=== PATIENT | female | born 1980 | race Caucasian/White ===

== ENCOUNTER → 2018-10-29 12:50 | Outpatient (CLI) | payer OTHER, SELFPAY | PROVIDERS: PCP Family Medicine; Visit Provider Family Medicine | DX: R20.2 Paresthesia of skin (principal) | CPT/HCPCS: 95911 ==

== ENCOUNTER → 2019-05-24 12:04 | Outpatient (CLI) | payer OTHER, SELFPAY ==
--- NOTE | 2019-05-24 | DI.MG.S_ITS ---
BILATERAL DIGITAL SCREENING MAMMOGRAM 3D/2D WITH CAD: 05/24/2019 CLINICAL: Baseline exam. Routine screening. No prior exams were available for comparison. There are scattered fibroglandular elements in both breasts. Current study was also evaluated with a Computer Aided Detection (CAD) system. No significant masses, calcifications, or other findings are seen in either breast. IMPRESSION: NEGATIVE There is no mammographic evidence of malignancy. A 1 year screening mammogram is recommended. This exam was interpreted at Station ID: [id number]. NOTE: For mammograms, a report in lay terms will be sent to the patient. Approximately 15% of breast malignancies will not be visualized mammographically. In the management of a palpable breast mass, a negative mammogram must not discourage biopsy of a clinically suspicious lesion. Electronically Signed By: Renata ortiz/[email or web address]:05/24/2019 17:17:04 letter sent: Normal Exam ACR BI-RADS Category 1: Negative [id number]
== END ==
PROVIDERS: PCP Family Medicine; Visit Provider Family Medicine
DX: Z12.31 Encounter for screening mammogram for malignant neoplasm of breast (principal)
CPT/HCPCS: 77063; 77067

== ENCOUNTER 2021-02-13 15:52 | Observation (INO) | payer OTHER, SELFPAY ==
[2021-02-13 15:56] VITALS: BP 158/90; PULSE 119; RESP 18; TEMP 37.4; O2SAT 98; BMI 43.9
[2021-02-13 17:16] LABS: Add Manual Diff / Slide Review NO; Basophils Absolute Auto 0 /uL (0-100); Basophils Percent Auto 0.3 % (0-2); Eosinophils Absolute Auto 0 /uL (0-450); Eosinophils Percent Auto 0.1 % (2-4); Hematocrit 42.7 % (36-46); Hemoglobin 14.6 g/dL (12.0-16.0); Lymphocytes Absolute Auto 800 /uL (1100-4500); Lymphocytes Percent Auto 4.1 % (25-40); Mean Corpuscular HGB Conc 34.3 % (30-36); Mean Corpuscular Hemoglobin 30.1 PG (26-34); Mean Corpuscular Volume 87.9 fL (80-100); Monocytes Absolute Auto 600 /uL (0-900); Monocytes Percent Auto 3.2 % (3-14); Neutrophils Absolute Auto 17800 /uL (1500-7000); Neutrophils Percent Auto 92.3 % (50-75); Platelet Count 256 X10^3/uL (150-400); Red Blood Cell Count 4.85 X10^6/uL (4.0-5.2); Red Cell Distribution Width 12.3 % (11.6-14.8); White Blood Cell Count 19.2 X10^3/uL (4.5-11.0)
[2021-02-13 17:27] LABS: Alanine Aminotransferase 25 IU/L (<35); Albumin 4.2 g/dL (3.5-5.0); Albumin Globulin Ratio 1.3 (1.0-2.8); Alkaline Phosphatase 74 U/L (38-126); Aspartate Aminotransferase 28 IU/L (14-36); BUN Creatinine Ratio 16.4 (6-22); Bilirubin Total 1.2 mg/dL (0.2-1.3); Blood Urea Nitrogen 12 mg/dL (7-17); Calcium 9.6 mg/dL (8.4-10.2); Carbon Dioxide 23 mmol/L (22-32); Chloride 103 mmol/L (98-107); Estimated Glomerular Filt Rate > 60.0 mL/min (>60); Globulin 3.3 g/dL (1.7-4.1); Glucose 111 mg/dL (70-100); HEMOLYSIS < 15 (0-50); Lipase 76 U/L (23-300); Potassium 3.9 mmol/L (3.4-5.1); Sodium 135 mmol/L (137-145); Total Protein 7.5 g/dL (6.3-8.2)
--- NOTE | 2021-02-13 18:16 | ED_ITS ---
HPI - Abdominal Pain General Chief Complaint: Abdominal Pain Stated Complaint: abd pain Time Seen by Provider: 02/13/21 18:09 Source: patient and family Mode of arrival: Wheelchair Limitations: no limitations History of Present Illness HPI narrative: 40-year-old female nonsmoker with history of hypothyroidism presents with her significant other from her primary care provider's office for evaluation of gradually worsening right lower quadrant pain over the course of the day. She states she went to bed last night in her normal state of health and woke up this morning with rather sudden onset right lower quadrant pain that is done nothing but worsened over the course of the day. She admits to worsening pain with movement and ambulation and improvement with rest. She has had no fever but admits to some chills as well as nausea but no vomiting. She has a poor appetite and last ate at about 2:30 p.m.. She denies any change in bowel habits such as constipation or diarrhea. She denies dysuria, frequency or urgency. She has had 2 prior C-sections but otherwise no abdominal surgeries. She states that her pain is intensifying, solidly in her right lower quadrant and crampy in nature Related Data Home Medications Medication Instructions Recorded Confirmed cholecalciferol (vitamin D3) 50 50 mcg PO DAILY 02/13/21 02/13/21 mcg (2,000 unit) capsule levothyroxine 125 mcg tablet 125 mcg PO DAILY 02/13/21 02/13/21 multivitamin 1 tab PO DAILY 02/13/21 02/13/21 Allergies Allergy/AdvReac Type Severity Reaction Status Date / Time bee venom protein (honey bee) Allergy Severe Blister Verified 02/13/21 15:56 clindamycin Allergy Intermediate ITCHING Verified 02/13/21 15:56 Review of Systems Review of Systems Narrative: GENERAL: See HPI HEENT: Denies sinus pain, ear pain, sore throat, difficulty swallowing, dizziness. RESPIRATORY: Denies dyspnea, cough, wheezing, hemoptysis, sputum. CARDIOVASCULAR: Denies chest pain, palpitations, orthopnea, edema, GASTROINTESTINAL: See HPI a. : Denies dysuria, frequency, incontinence, hematuria, urinary retention. MUSCULOSKELETAL: denies weakness, joint pain, or bony pain SKIN: Denies rash, skin lesions, or other NEUROLOGIC: Denies weakness, headache, numbness, change in speech, confusion, seizures, incoordination. PSYCHIATRIC: No concerning psychosocial issues. 12 point review of systems is negative except for those stated above Patient History Social History household members: spouse and children Smoking Status: Never smoker Smoking Status: Never smoker alcohol intake frequency: a few times a week Substance Use Type: does not use Exam Narrative Exam Narrative: GENERAL: [40] year old patient appears stated age. Well- developed patient, in mild distress. Obviously uncomfortable, rubbing her lower abdomen HEAD: Atraumatic. Normocephalic. EYES: Pupils equal round and reactive. Extraocular motions intact. No scleral icterus. No injection or drainage. ENT: Nose without bleeding, purulent drainage. Throat without erythema, tonsillar hypertrophy or exudate. Airway patent. NECK: Trachea midline. Non tender CARDIOVASCULAR: Regular rate and rhythm without murmurs, gallops, or rubs. RESPIRATORY: Clear to auscultation. Breath sounds equal bilaterally. No wheezes, rales, or rhonchi. GASTROINTESTINAL: Abdomen soft, tender in the right lower quadrant with localized peritonitis, bowel sounds are present in all 4 quadrants, negative heel tap, obturator and psoas, nondistended. EXTREMITIES: No edema or joint tenderness. BACK: Nontender without deformity or crepitance. No flank tenderness. NEURO: AOx3. SKIN: No rash or erythema of visible areas Initial Vital Signs Initial Vital Signs: Vital Signs Temperature 99.4 F 02/13/21 15:56 Pulse Rate 119 H 02/13/21 15:56 Respiratory Rate 18 02/13/21 15:56 Blood Pressure 158/90 H 02/13/21 15:56 Pulse Oximetry 98 02/13/21 15:56 Course Orders Ordered: ED Orders 02/13/21 18:07 Blood Culture Stat 02/13/21 18:17 CT chest abd pel w con Stat 02/13/21 18:45 COVID19 - ADMIT (RADIOLOGY PRACTITIONER ASSISTANT swab/PCR) Stat Acetaminophen (Acetaminophen 325 Mg Tablet) 650 mg PO Q6HR PRN PRN Reason: Fever/Mild Pain (1-3) Hydrocodone Bitart/Acetaminophen (Hydrocodone/Acet 5/325 Tablet) 2 tab PO Q4HR PRN PRN Reason: Pain, Severe (7-10) Heparin Sodium (Porcine) (Heparin 5,000 Unit/Ml Vial) 5,000 unit SUBCUT BID [facility] Last Admin: 02/13/21 22:29 Dose: 5,000 unit Documented by: KARO Dextrose/Sodium Chloride (Dextrose 5%-0.9% Ns) 1,000 mls @ 100 mls/hr IV CONT [facility] Last Admin: 02/13/21 22:29 Dose: 100 mls/hr Documented by: KARO Piperacillin Sod/Tazobactam (Sod 4.5 gm/ Sodium Chloride) 100 mls @ 25 mls/hr IV Q8H [facility] Last Admin: 02/13/21 22:29 Dose: 25 mls/hr Documented by: KARO Sodium Chloride (Normal Saline 0.9%) 250 mls @ 21 mls/hr IV Q24H PRN PRN Reason: Flush Ibuprofen (Ibuprofen 600 Mg Tablet) 600 mg PO Q6HR [facility] Last Admin: 02/13/21 23:41 Dose: 600 mg Documented by: ARNULFO Naloxone HCl (Naloxone 0.4 Mg/Ml Vial) 0.2 mg IV Q2MIN PRN PRN Reason: Opiate Reversal Ondansetron HCl (Ondansetron 4 Mg/2 Ml Inj) 4 mg IV Q8HR PRN PRN Reason: Nausea And Vomiting Sodium Chloride (Sodium Chloride 0.9% Flush) 10 ml IV PRN PRN PRN Reason: Flush Sodium Chloride (Sodium Chloride 0.9% Flush) 10 ml IV BID [facility] Discontinued Medications Piperacillin Sod/Tazobactam (Sod 4.5 gm/ Sodium Chloride) 100 mls @ 200 mls/hr IV NOW ONE Stop: 02/13/21 19:52 Last Infusion: 02/13/21 21:02 Dose: 0 mls/hr Documented by: Admin: 02/13/21 20:13 Dose: 200 mls/hr Documented by: JESUS Sodium Chloride (Normal Saline 0.9%) 1,000 mls @ 1,000 mls/hr IV BOLUS ONE Stop: 02/13/21 22:42 Last Infusion: 02/13/21 21:45 Dose: 0 mls/hr Documented by: Admin: 02/13/21 19:45 Dose: 1,000 mls/hr Documented by: JESUS Ketorolac Tromethamine (Ketorolac 30 Mg/Ml Vial) 15 mg IV NOW ONE Stop: 02/13/21 19:37 Last Admin: 02/13/21 19:45 Dose: 15 mg Documented by: JESUS Morphine Sulfate (Morphine 4 Mg/Ml Inj) 4 mg IV NOW ONE Stop: 02/13/21 19:37 Last Admin: 02/13/21 19:45 Dose: 4 mg Documented by: JESUS Reevaluation(s) Reevaluation #1: Significant improvement after above-stated therapies Consultations Consultation #1: Call to Dr. Garcia (on-call general surgery) who will admit, write the orders and take to the OR tomorrow Vital Signs Vital signs: Vital Signs - 8 hr 02/13/21 20:00 Pulse Rate 101 H Respiratory Rate 18 Blood Pressure 125/64 Pulse Oximetry 96 MDM - Abdominal Pain Lab Data Result diagrams: 02/13/21 17:05 02/13/21 17:05 Labs: Lab Results 02/13/21 02/13/21 02/13/21 Range/Units 17:05 17:05 17:05 WBC 19.2 H (4.5-11.0) X10^3/uL RBC 4.85 (4.0-5.2) X10^6/uL Hgb 14.6 (12.0-16.0) g/dL Hct 42.7 (36-46) % MCV 87.9 (80-100) fL MCH 30.1 (26-34) PG MCHC 34.3 (30-36) % RDW 12.3 (11.6-14.8) % Plt Count 256 (150-400) X10^3/uL Neut % (Auto) 92.3 H (50-75) % Lymph % (Auto) 4.1 L (25-40) % [place] % (Auto) 3.2 (3-14) % Eos % (Auto) 0.1 L (2-4) % Baso % (Auto) 0.3 (0-2) % Neut # (Auto) 40637 H (1897-6718) /uL Lymph # (Auto) 800 L (4071-8570) /uL [place] # (Auto) 600 (0-900) /uL Eos # (Auto) 0 (0-450) /uL Baso # (Auto) 0 (0-100) /uL Sodium 135 L (137-145) mmol/L Potassium 3.9 (3.4-5.1) mmol/L Chloride 103 (98-107) mmol/L Carbon Dioxide 23 (22-32) mmol/L BUN 12 (7-17) mg/dL Creatinine 0.73 (0.52-1.04) mg/dL Estimated GFR > 60.0 (>60) mL/min BUN/Creatinine Ratio 16.4 (6-22) Glucose 111 H (70-100) mg/dL Lactate 1.0 (0.7-2.1) mmol/L Calcium 9.6 (8.4-10.2) mg/dL Total Bilirubin 1.2 (0.2-1.3) mg/dL AST 28 (14-36) IU/L ALT 25 (<35) IU/L Alkaline Phosphatase 74 (38-126) U/L Total Protein 7.5 (6.3-8.2) g/dL Albumin 4.2 (3.5-5.0) g/dL Globulin 3.3 (1.7-4.1) g/dL Albumin/Globulin Ratio 1.3 (1.0-2.8) Lipase 76 (23-300) U/L Procalcitonin (<0.5) ng/mL SARS-CoV-2 (PCR) (Negative) 02/13/21 02/13/21 Range/Units 17:05 18:45 WBC (4.5-11.0) X10^3/uL RBC (4.0-5.2) X10^6/uL Hgb (12.0-16.0) g/dL Hct (36-46) % MCV (80-100) fL MCH (26-34) PG MCHC (30-36) % RDW (11.6-14.8) % Plt Count (150-400) X10^3/uL Neut % (Auto) (50-75) % Lymph % (Auto) (25-40) % [place] % (Auto) (3-14) % Eos % (Auto) (2-4) % Baso % (Auto) (0-2) % Neut # (Auto) (7370-6157) /uL Lymph # (Auto) (8913-0010) /uL [place] # (Auto) (0-900) /uL Eos # (Auto) (0-450) /uL Baso # (Auto) (0-100) /uL Sodium (137-145) mmol/L Potassium (3.4-5.1) mmol/L Chloride (98-107) mmol/L Carbon Dioxide (22-32) mmol/L BUN (7-17) mg/dL Creatinine (0.52-1.04) mg/dL Estimated GFR (>60) mL/min BUN/Creatinine Ratio (6-22) Glucose (70-100) mg/dL Lactate (0.7-2.1) mmol/L Calcium (8.4-10.2) mg/dL Total Bilirubin (0.2-1.3) mg/dL AST (14-36) IU/L ALT (<35) IU/L Alkaline Phosphatase (38-126) U/L Total Protein (6.3-8.2) g/dL Albumin (3.5-5.0) g/dL Globulin (1.7-4.1) g/dL Albumin/Globulin Ratio (1.0-2.8) Lipase (23-300) U/L Procalcitonin 0.40 (<0.5) ng/mL SARS-CoV-2 (PCR) Negative (Negative) Imaging Data CT scan - abdomen/pelvis: Radiologist's Impression: Ladonna Selby 40 F [address] Scan ReportSigned Patient: Ladonna Selby [facility]#: [id number]: 1980Acct:[id number]/Sex: 40 / FDate of Service: 02/13/21Loc: EDAccession Number: [id number] Procedure: CT chest abd pel w con Ordering Provider: Cliff Gudino D.O. PROCEDURE: CT CHEST ABD PEL W CON INDICATIONS: abdominal pain, fever, leukocytosis TECHNIQUE: After the administration of intravenous contrast, 5 mm thick sections acquired from the lung apices to the symphysis. 5 mm coronal and sagittal reformats were performed, with additional 7 mm MIP reformats through the lungs. For radiation dose reduction, the following was used: automated exposure control, adjustment of mA and/or kV according to patient size. COMPARISON: None. FINDINGS: Image quality: Excellent. CHEST: Lungs and pleura: No acute airspace opacities. No pleural effusions or pneumothorax. Central and peripheral airways appear patent and normal in caliber. Mediastinum: Heart size is normal. No pericardial effusion. No mediastinal or hilar adenopathy by size criteria. Thoracic aorta and central pulmonary arteries are normal in size. Esophagus is normal in caliber. No hiatal hernia. Chest wall: No axillary or supraclavicular adenopathy by size criteria. Thyroid gland unremarkable . ABDOMEN: Solid organs: Liver is normal in size and enhancement. Gallbladder shows cholelithiasis without pericholecystic inflammatory change. Biliary system is non dilated. Pancreas enhances normally. Spleen is enlarged at 13.3 cm. No adrenal nodules. Kidneys demonstrate normal size and enhancement, without hydronephrosis. Peritoneum and bowel: The appendix is dilated and inflamed measuring up to 1.1 cm in diameter, there is a 8 mm appendicoliths noted at the base. Additional append icoliths noted as well. Fluid-filled distended small bowel is also present probably reflecting ileus. No free fluid or abscess. Nodes and vessels: No retroperitoneal or mesenteric adenopathy by size criteria. Aorta and inferior vena cava are normal in size. Miscellaneous: No ventral hernias. PELVIS: Genitourinary: Bladder wall thickness is normal. There is a 3.4 cm left adnexal cyst present. In unremarkable uterus Miscellaneous: No inguinal hernias or adenopathy. Bones: No suspicious bony lesions. No vertebral body compression fractures. IMPRESSION: 1. Acute appendicitis. The appendix is dilated inflamed, there is an 8 mm appendicolith noted at the base. Associated small bowel ileus present. 2. Incidental cholelithiasis, splenomegaly and left adnexal 3.4 cm cyst. Critical results were discussed with Dr. Camejo in the ER at 06:22 PM [place] time on 02/13/21 Dictated by: Tone Velarde M.D. on 02/13/2021 at 18:17 Approved by: Tone Velarde M.D. on 02/13/2021 at 18:26 Discharge Plan Departure Patient Disposition: Admitted as Observation Clinical Impression: Acute appendicitis Qualifiers: Acute appendicitis type: with localized peritonitis Appendicitis gangrene presence: without gangrene Appendicitis perforation presence: without perforation Appendicitis abscess presence: without abscess Qualified Code(s): K35.30 - Acute appendicitis with localized peritonitis, without perforation or gangrene Admit Date/Time: 02/13/21 20:42 Admit Provider: Maryann Garcia
[2021-02-13] MEDS: KETOROLAC 30 MG/ML VIAL 15 MG IV (19:45)
[2021-02-13] MEDS: MORPHINE 4 MG/ML INJ IV (19:45)
[2021-02-13] MEDS: SODIUM CHLORIDE 0.9% 1,000 ML 1000 ML IV (19:45)
[2021-02-13 20:00] VITALS: BP 125/64; PULSE 101; RESP 18; O2SAT 96
[2021-02-13 20:01] LABS: COVID19 - ADMIT (NP swab/PCR) Negative (Negative)
[2021-02-13] MEDS: PIPERACILLIN/TAZO 4.5 GM in SODIUM CHLORIDE 0.9% 100 ML 200 ML IV (20:13)
[2021-02-13 21:00] VITALS: BP 112/62; PULSE 92; RESP 18; O2SAT 98
[2021-02-13 21:50] VITALS: BP 113/72; PULSE 88; RESP 18; O2SAT 100
[2021-02-13 21:55] VITALS: BP 114/58; PULSE 108; RESP 17; TEMP 37.9; O2SAT 99
[2021-02-13 22:01] VITALS: BMI 43.9
[2021-02-13] MEDS: DEXTROSE 5%-0.9% NS 1,000 ML 100 ML IV (22:29)
[2021-02-13] MEDS: HEPARIN 5,000 UNIT/ML VIAL 5000 UNIT SUBCUT (22:29)
[2021-02-13] MEDS: PIPERACILLIN/TAZO 4.5 GM in SODIUM CHLORIDE 0.9% 100 ML 25 ML IV (22:29)
[2021-02-13] MEDS: IBUPROFEN 600 MG TABLET PO (23:41)
[2021-02-14] VITALS (14 sets, daily range): BP systolic 104–133; BP diastolic 55–76; PULSE 75–107; RESP 15–18; TEMP 36.7–37.7; O2SAT 94–100; BMI 43.9
--- NOTE | 2021-02-14 | PATH_ITS ---
[facility] Accession Number: [id number] . 01 Material submitted: . appendix - APPENDIX . 02 Diagnosis: Appendix, Appendectomy: Acute suppurative appendicitis with microscopic perforation and serositis. Negative for dysplasia and malignancy. MRV 02/20/2021 1125 Local . 02 Electronically signed: . Sofia Vernon MD, Pathologist NPI- [id number] . 01 Gross description: . The specimen is received in formalin and labeled with appendix. It consists of an 8.1 cm in length by 1.3 cm in greatest diameter, intact appendix, stapled at one end. The serosa is yellow-fang to brown-fang and diffusely congested. The staple line is inked black and shaved. The tip is removed and bisected, and the remaining appendix is serially sectioned. Sectioning reveals yellow-fang, diffusely hemorrhagic mucosa, a lumen that dilates to 0.8 cm in diameter, and basurto that average 0.3 cm in thickness. The lumen is filled with yellow-brown, semi-solid fecal material. [employer] Telephone Clerk sections are submitted. . Summary of Sections: A1 = Resection margin and bisected tip, 3 pieces. A2 = Appendix, serially sectioned, 2 pieces. A3 = Appendix, serially sectioned, 3 pieces. ([id number]) /MRV 02/16/2021 1749 Local . 02 Pathologist provided ICD-10: K35.80 . 02 CPT . 639271 Performed at: 01 [facility] [address], [place], [place] [id number] MD Aly Talavera MD Phone: [phone] Performed at: 02 [facility] [address], [place] [id number] MD Sofia Vernon MD Phone: [phone]
--- NOTE | 2021-02-14 00:48 | PC.NURSE ---
Patient is alert and oriented. Breath sounds diminished at bases but CTA with RA sat of 99%. HRR but tachy at 102 bpm. Denied nausea. BT present and abdomen is soft but tender in RLQ. Complained of 4/10 pain and was medicated with scheduled Ibuprofen and is currently asleep. Denied dysuria, frequency or urgency with urination. Able to move self in bed. Denied falls or unsteadiness when up, but due to IV and use of SCD's discussed with patient to call for assistance when getting up and she verbalizes agreement to do so. Chronic bilateral LE edema. Bilateral calf SCD's applied at shift changed. Is currently NPO and patient is aware. Fall risk score is moderate but alarm not used at this time as patient agreeing to call for assist.
[2021-02-14] MEDS: PIPERACILLIN/TAZO 4.5 GM in SODIUM CHLORIDE 0.9% 100 ML 25 ML IV ×2 (05:44→14:51)
[2021-02-14] MEDS: IBUPROFEN 600 MG TABLET PO ×2 (05:44→11:00)
[2021-02-14] MEDS: HEPARIN 5,000 UNIT/ML VIAL 5000 UNIT SUBCUT (09:24)
--- NOTE | 2021-02-14 09:51 | PC.NURSE ---
Assess- Patient is alert and oriented x3, she denies pain and states that ibuprofen is helpful for discomfort. Patient is a stand by assist when ambulating to the bathroom. She will be going to surgery tentatively around 1700.
--- NOTE | 2021-02-14 11:48 | CM.DANOTE ---
DCP/Assessment: Reviewed chart. Patient is a 40yr old female admitted to [facility] with abdominal pain. PCP is Dr. Stroud. Primary payor is [facility]. Patient brought over from PCP's office yesterday with abdominal pain. Patient with acute appendicitis. Surgery scheduled today with Dr. Garcia. At this time there are no anticipated d/c planning needs. CM team to continue to follow. P: Home when medically stable. LILI Clark Discharge Planning/Care Management CM Discharge Assessment Start: 02/14/21 11:44 Freq: Status: Active Protocol: Document 02/14/21 11:44 KJS (Rec: 02/14/21 11:48 KJS [id number]) Discharge Planning Assessment Assigned Internal Affairs Investigator LILI Clark Contact Information Dieter Selby (spouse) ph# Advance Directives? No History Provided By Medical Record Prior Living Arrangements House Household Members spouse,children Type of transporation used prior to Drives own vehicle admit Independent with ADL's Yes Is patient alert and oriented? Yes Barriers to Discharge No Discharge Plan Home Transportation Arrangement Family Referrals Initiated Other Additional Comment Patient scheduled for surgery today at this time do not anticipate any d/c planning needs. Review Status In Process Next Review Type Continued Stay Review
--- NOTE | 2021-02-14 16:19 | PC.NURSE ---
Addendum entered by Светлана Schwartz R.N. 02/14/21 22:38: Left floor for OR around 2144. Original Note: MILLICENT Shift note. pt AO and receptive to care. Zozyn infusing to R AC PIV and tolerating well. pt reporting 2/10 pain to ABD and requesting PO Ibuprofen as soon as it is available. pt has been NPO since midnight anticipating the OR around 1700. in room. pt up SBA (only due to IV pole) and urinating well; BM at start of shift with changes in characteristics. Bilateral pedal edema +2, non-pitting. Consents provided to pt to look over.
--- NOTE | 2021-02-14 16:57 | PM.HP.1 ---
History of Present Illness History of Present Illness Date Patient Seen: 02/14/21 Time Patient Seen: 16:57 Date of Onset of Symptoms: 02/13/21 Chief complaint: abd pain Narrative: Abdominal pain localizing RLQ over last 24hrs. anorexia and RLQ sharp pain resolving with antibiotics. no previous events. CT confirms appendicitis with fecal lith. Patient History Family & Social History Social History: household members spouse,children Prior Living Arrangements House Safety & Behavioral: Feels Safe in Current Yes Environment Been Physically Hurt or No Threatened By a Person Suicidal Ideation Description None Suicide Plan Description No Plan Tobacco & Substance use: Smoking Status Never smoker alcohol intake frequency a few times a week Substance Use Type does not use Meds Home Medications and Allergies Home Medications Medication Instructions Recorded Confirmed Type cholecalciferol (vitamin D3) 50 50 mcg PO DAILY 02/13/21 02/13/21 History mcg (2,000 unit) capsule levothyroxine 125 mcg tablet 125 mcg PO DAILY 02/13/21 02/13/21 History multivitamin 1 tab PO DAILY 02/13/21 02/13/21 History Allergies Allergy/AdvReac Type Severity Reaction Status Date / Time bee venom protein (honey bee) Allergy Severe Blister Verified 02/13/21 15:56 clindamycin Allergy Intermediate ITCHING Verified 02/13/21 15:56 Review of Systems Review of Systems ROS: Yes All systems reviewed with the patient and are negative except as otherwise documented Gastrointestinal Gastrointestinal: Reports abdominal pain (right lower quadrant. ) Exam Vital Signs (past 8 hours): - 02/14/21 09:00 02/14/21 16:18 Temperature 98.8 F Pulse Rate 75 96 H Respiratory Rate 16 18 Blood Pressure 104/55 L 133/67 Pulse Oximetry 99 100 Oxygen Delivery Method Room Air Oxygen Flow Rate 0 Const General: cooperative and healthy appearing Nutritional Appearance: well nourished Orientation: alert and oriented x3 HENMT Head: normal to inspection Face and sinus: normal facial exam Eyes General: appearance normal, both eyes and all related structures Sclera: sclerae normal Neck Neck: normal visual inspection Chest Chest: normal inspection of the chest Resp Effort & Inspection: normal respiratory effort and able to speak in complete sentences Cardio Rate: regular rate Rhythm: regular rhythm GI Palpation: soft and tender (right lower quadrant) Skin General: no rashes or lesions noted Neuro General: patient alert and patient oriented x3 Cognition: normal cognition Extrem General: normal to inspection and full ROM Psych Appearance: grossly normal Attitude: cooperative Judgment: judgment good Objective Labs Result Diagrams: 02/13/21 17:05 02/13/21 17:05 Labs: Laboratory Results - last 24 hr 02/13/21 02/13/21 02/13/21 17:05 17:05 17:05 WBC 19.2 H RBC 4.85 Hgb 14.6 Hct 42.7 MCV 87.9 MCH 30.1 MCHC 34.3 RDW 12.3 Plt Count 256 Neut % (Auto) 92.3 H Lymph % (Auto) 4.1 L [place] % (Auto) 3.2 Eos % (Auto) 0.1 L Baso % (Auto) 0.3 Neut # (Auto) 06959 H Lymph # (Auto) 800 L [place] # (Auto) 600 Eos # (Auto) 0 Baso # (Auto) 0 Sodium 135 L Potassium 3.9 Chloride 103 Carbon Dioxide 23 BUN 12 Creatinine 0.73 Estimated GFR > 60.0 BUN/Creatinine Ratio 16.4 Glucose 111 H Lactate 1.0 Calcium 9.6 Total Bilirubin 1.2 AST 28 ALT 25 Alkaline Phosphatase 74 Total Protein 7.5 Albumin 4.2 Globulin 3.3 Albumin/Globulin Ratio 1.3 Lipase 76 Procalcitonin SARS-CoV-2 (PCR) 02/13/21 02/13/21 17:05 18:45 WBC RBC Hgb Hct MCV MCH MCHC RDW Plt Count Neut % (Auto) Lymph % (Auto) [place] % (Auto) Eos % (Auto) Baso % (Auto) Neut # (Auto) Lymph # (Auto) [place] # (Auto) Eos # (Auto) Baso # (Auto) Sodium Potassium Chloride Carbon Dioxide BUN Creatinine Estimated GFR BUN/Creatinine Ratio Glucose Lactate Calcium Total Bilirubin AST ALT Alkaline Phosphatase Total Protein Albumin Globulin Albumin/Globulin Ratio Lipase Procalcitonin 0.40 SARS-CoV-2 (PCR) Negative Assessment & Plan Assessment & Plan narrative: acute appendicitis going for lap appy. IV antibiotics until then COVID-19 COVID-19 status: Negative Time Spent With Patient Time with patient: 15-24 minutes
[2021-02-14] MEDS: LACTATED RINGERS 1,000 ML 42 ML IV (17:28)
[2021-02-14] MEDS: ACETAMINOPHEN 325 MG TABLET 975 MG PO (17:38)
--- NOTE | 2021-02-14 17:59 | SUR.HOLD ---
Informed Dr Garcia of patient pain 02/10 to abdomen, pt NPO and only oral meds ordered. See new order.
[2021-02-14] MEDS: MORPHINE 2 MG/ML INJ IV ×2 (18:21→20:14)
--- NOTE | 2021-02-14 18:28 | SUR.HOLD ---
Addendum entered by Shyanne Cadena R.N. 02/14/21 18:40: Pt handover at bedside to RN. Pt on continuous pulse ox at 96% RA. Bed in low position. Original Note: Pt transfered back to room 216 pending OR and surgery. Report called to Светлана ROD. Medicated for pain. Alert, oriented. Updated on OR schedule.
--- NOTE | 2021-02-14 21:56 | PC.NURSE ---
Patient left room and went to surgery at 9:55pm.
--- NOTE | 2021-02-14 22:31 | SUR.OPER ---
Supine on padded OR bed, head on pillow, right arm secured on padded arm boards at <90 degrees abduction, left arm is wrapped in gel and tucked, legs uncrossed, safety belt at thigh, tape over blanket over lower legs.
[2021-02-14] MEDS: BUPIVACAINE 0.25% W/ EPI 30 ML VIAL INJ (22:42)
[2021-02-14] MEDS: LACTATED RINGERS 1,000 ML 120 ML IV (22:46)
--- NOTE | 2021-02-14 22:56 | P.OP_ITS ---
Operative Date/Time/Diagnoses Date of procedure: 02/14/21 Time of procedure: 22:56 Pre-op diagnosis: acute appendicitis Post-op diagnosis: other (ruptured appendicitis) Procedure & Clinicians Procedure: laparoscopic appendectomy Same procedure as scheduled: Yes Indications: Evidence of acute appendicitis Surgeon: Maryann Garcia Click Yes if Unassisted: Yes Anesthesia Type: General Operative Notes Findings: Ruptured but contained appendicitis Closure Type: primary Specimen(s): other (Appendix) Estimated Blood Loss (mL): 5 Blood products transfused: none Procedure in detail: Preop diagnosis: Acute appendicitis Postop diagnosis: Same Operative procedure: Laparoscopic appendectomy Surgeon: Nery Garcia MD Anesthesiologist: Shawnee Veliz MD Findings: A contained but ruptured appendicitis, gangrenous Procedure: Patient placed in supine position. Prepped and draped in a sterile fashion exposure abdomen. Infraumbilical port site was placed using open technique and a 12 mm port. Insufflation began all other ports were placed under direct vision including a 5 mm port in the suprapubic area and a 5 mm port in the left lateral abdomen. Appendix was identified and bluntly dissected from surrounding tissue which included the right ovary and fimbriae. I then used electrocautery to take down the appendiceal mesentery with good hemostasis. The appendix was amputated at its base with a HERLINDA stapling device. The detached appendix was placed in Endo- Catch bag and pulled through the infraumbilical port site intact. I surveyed the abdomen for hemostasis. We suctioned physiologic fluid from the pelvis and residual blood from the operative site. Staple line was healthy. We then removed all ports and began closure. Closure consisted of interrupted 0 Vicryl for fascial closure of the infraumbilical port site. Skin was closed a running 4-0 Vicryl. Steri-Strips and sterile dressings were placed. Patient was awakened, extubated, taken to recovery room in stable condition with needle, instrument, and sponge counts correct. Blood loss: 5 mL Specimen: Appendix Complications: none Post-operative Condition: stable Disposition: PACU
--- NOTE | 2021-02-14 23:14 | SUR.PHASEI ---
aroused spontaneously, denies pain, asking appropriate questions and talking w/Dr. Pope. Dressings clean and dry/abdomen soft upon arrival to PACU
--- NOTE | 2021-02-14 23:45 | SUR.PHASEI ---
2337 to room 216, bed remains elevated at the request of VIOLA Quick. VSS. Dressings remain CDI, Report given at bedside. pt stable, oriented, reports that she is enjoying the sleep.
[2021-02-15] VITALS (7 sets, daily range): BP systolic 111–131; BP diastolic 61–75; PULSE 74–105; RESP 16; TEMP 36.3–37.6; O2SAT 93–97
[2021-02-15] MEDS: SODIUM CHLORIDE 0.9% FLUSH 10 ML IV ×2 (00:02→08:55)
[2021-02-15] MEDS: MORPHINE 2 MG/ML INJ IV (00:02)
[2021-02-15] MEDS: LACTATED RINGERS 1,000 ML 100 ML IV (00:21)
--- NOTE | 2021-02-15 03:00 | PC.NURSE ---
Patient returned from PACU and assessed at that time and then bed returned to low position. Is alert and oriented. Breath sounds diminished at bases but CTA with RA sat of 96%; left on continuous oximetry per MD order. HRR. Denied nausea. BT hypoactive; abdomen is soft but tender. Stated she was having abdominal cramping like pain and rated severity as 4/10. Dr Garcia contacted as no pain medication ordered post-op and order received for Morphine which patient received with good results. Did get up to bathroom with SBA and voided clear, dark urine. Noted patient started menses. Lap sites to abdomen x 3 with dressings which were CDI. Bilateral calf SCD's applied. Fall risk score is moderate but patient verbalizes agreement to call for staff assistance so bed alarm is not activated at this time.
[2021-02-15] MEDS: IBUPROFEN 400 MG TABLET 800 MG PO (05:52)
[2021-02-15 06:01] LABS: Add Manual Diff / Slide Review NO; Basophils Absolute Auto 0 /uL (0-100); Basophils Percent Auto 0.1 % (0-2); Eosinophils Absolute Auto 0 /uL (0-450); Hematocrit 37.8 % (36-46); Hemoglobin 12.9 g/dL (12.0-16.0); Lymphocytes Absolute Auto 600 /uL (1100-4500); Lymphocytes Percent Auto 4.3 % (25-40); Mean Corpuscular HGB Conc 34.1 % (30-36); Mean Corpuscular Hemoglobin 30.5 PG (26-34); Mean Corpuscular Volume 89.4 fL (80-100); Monocytes Absolute Auto 400 /uL (0-900); Monocytes Percent Auto 2.7 % (3-14); Neutrophils Absolute Auto 12200 /uL (1500-7000); Neutrophils Percent Auto 92.9 % (50-75); Platelet Count 240 X10^3/uL (150-400); Red Blood Cell Count 4.23 X10^6/uL (4.0-5.2); Red Cell Distribution Width 12.4 % (11.6-14.8); White Blood Cell Count 13.1 X10^3/uL (4.5-11.0)
[2021-02-15] MEDS: AMOXICILLIN/CLAV 875/125 MG 1 TAB PO (08:55)
--- NOTE | 2021-02-15 09:36 | P.DS_ITS ---
History of Present Illness History of Present Illness Date Patient Seen: 02/15/21 Time Patient Seen: 09:37 Date of Onset of Symptoms: 02/13/21 Chief complaint: abd pain Narrative: Abdominal pain localizing RLQ over last 24hrs. anorexia and RLQ sharp pain resolving with antibiotics. no previous events. CT confirms appendicitis with fecal lith. Discharge Providers Provider Date of admission: 02/13/21 20:42 Discharge Date: 02/15/21 Primary care physician: Dandre Stroud MD Discharge provider: Maryann Garcia MD Summary Hospital Course Discharge Diagnosis: ruptured appendicitis Hospital Course: IV antibiotics followed by Laparoscopic appendectomy and 5 more days of Augmentin po Status at Discharge Cognitive/behavioral status at discharge: oriented Functional status at discharge: independent ambulation Overall status at discharge: patient is back to baseline Time Spent with Patient Time spent: Less than 30 minutes Exam Vital Signs (past 8 hours): - 02/15/21 01:45 02/15/21 02:44 02/15/21 05:17 Temperature 97.6 F 98.6 F Pulse Rate 74 84 105 H Respiratory Rate 16 16 Blood Pressure 111/61 131/74 115/73 Pulse Oximetry 94 95 94 02/15/21 05:29 Temperature 97.4 F L Pulse Rate Respiratory Rate Blood Pressure Pulse Oximetry Oxygen Delivery Method Room Air Oxygen Flow Rate 0 Objective Labs Result Diagrams: 02/15/21 05:30 02/13/21 17:05 Labs: Laboratory Results - last 24 hr 02/15/21 05:30 WBC 13.1 H RBC 4.23 Hgb 12.9 Hct 37.8 MCV 89.4 MCH 30.5 MCHC 34.1 RDW 12.4 Plt Count 240 Neut % (Auto) 92.9 H Lymph % (Auto) 4.3 L Ingham % (Auto) 2.7 L Eos % (Auto) 0.0 L Baso % (Auto) 0.1 Neut # (Auto) 43148 H Lymph # (Auto) 600 L Ingham # (Auto) 400 Eos # (Auto) 0 Baso # (Auto) 0 PFSH Social History household members: spouse and children Smoking Status: Never smoker Discharge Assessment & Plan Assessment and Plan Assessment: s/p lap appy for ruptured appendicitis. Plan of Treatment: Home on Augmentin for 5 days. follow up [facility] for post op check 1-2 weeks Discharge Plan Discharge Plan Patient Disposition: Home Provider Discharge Comment: no heavy lifting (>15 lbs) for 4 weeks. 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) Discharge orders & Medications Prescriptions: New hydrocodone-acetaminophen 5-325 mg Tablet 2 tab PO Q4HR PRN (Reason: Pain, Severe (7-10)) Qty: 10 RF: 0 amoxicillin-pot clavulanate [Augmentin] 875-125 mg Tablet 1 tab PO BID Qty: 10 RF: 0 Continued multivitamin Tablet 1 tab PO DAILY RF: 0 levothyroxine 125 mcg Tablet 125 mcg PO DAILY RF: 0 cholecalciferol (vitamin D3) 50 mcg (2,000 unit) Capsule 50 mcg PO DAILY RF: 0 Follow up/Referrals: Dandre Stroud MD [Primary Care Provider] - Diet/Activity/Treatments Diet: Diet as Tolerated Skin/Wound/Dressing Care Report to your healthcare provider any signs of infection, such as:: chills, fever, increased pain, unusual drainage and unusual redness Dressing: remove outer dressing 24-48 hrs and leave steri strips for 10 days Visit Report/Discharge Packet Instructions: DI for an Appendectomy Discharge Data Primary Care Provider: Dandre Stroud Attending Provider: Maryann Garcia
--- NOTE | 2021-02-15 11:41 | PC.NURSE ---
Pt is dressed and ready for discharge home with Spouse. Went over d/c instructions with PT-discussed d/c meds, time of last dose, reviewed stroke education, s/s of infection, showering, no lifting >15# for 4 weeks, drink plenty of fluids to prevent constipation or dehydration, no driving while on narcotics, and follow up. Pt denies further questions and was taken out via w/c by WEIGHT ANALYST to POV with Spouse and all belongings.
--- NOTE | 2021-02-20 19:50 | PC.NURSE ---
Late Entry; LR infusion initiated 02/15 at 00:21 stopped per discharge order at 09:35.
== END 2021-02-15 11:43 | disposition home or self-care (01) ==
LOC: ED 20:29 → AC 20:43
PROVIDERS: Emergency Medicine; Admitting Provider Surgery; Emergency Provider Emergency Medicine; PCP Family Medicine; Referring Provider Emergency Medicine; Visit Provider Surgery
PROC: 0DTJ4ZZ Resection of Appendix, Percutaneous Endoscopic Approach (ICD-10-PCS; CPT 44970; principal; 2021-02-14 17:00)
DX: K35.32 Acute appendicitis with perforation, localized peritonitis, and gangrene, without abscess (principal); Z20.822 Contact with and (suspected) exposure to COVID-19
CPT/HCPCS: 44960; 36415; 71260; 74177; 80053; 83605; 83690; 84145; 85025; 87040; 87635; 96361; 96365; 96375; 96376; 99219; 99284; C9803; G0378; J0330; J1100; J1644; J1885; J2250; J2270; J2405; J2543; J2704; J3010

== ENCOUNTER → 2021-02-23 12:38 | Outpatient (CLI) | payer OTHER, SELFPAY ==
[2021-02-13 22:01] VITALS: BMI 43.9
--- NOTE | 2021-02-23 12:39 | DI.US.S_ITS ---
PROCEDURE: US ABDOMEN COMPLETE INDICATIONS: GALLSTONE ON RECENT CT TECHNIQUE: Real-time scanning was performed of the abdominal and retroperitoneal organs, with image documentation. COMPARISON: [facility], CT, CT CHEST ABD PEL W CON, 02/13/2021, 18:49. FINDINGS: Liver: Within normal limits in size. Increased in echogenicity. Gallbladder: Nondilated. 2.2 cm mobile gallstone. Normal gallbladder wall thickness. No pericholecystic fluid. Negative sonographic Aguilar's sign. Biliary ducts: Intrahepatic bile ducts are non-dilated. Extrahepatic bile duct caliber measures 4 mm. Normal is 6-7 mm or less in diameter, or 10 mm or less post-cholecystectomy. Pancreas: Not well seen. Spleen: Spleen is normal in size and homogeneous in echotexture. Kidneys: Kidneys are normal in size and echotexture. Right kidney measures 10.7 cm long; left kidney measures 9.3 cm long. No hydronephrosis or nephrolithiasis. No solid masses. Aorta: Visualized aorta is normal in caliber at less than 3 cm. Proximal aorta not well seen. Iliacs: Not well seen. IVC: Intrahepatic inferior vena cava is patent. Miscellaneous: No free abdominal fluid. IMPRESSION: 1. No acute cholecystitis. Mobile gallstone. 2. Increased hepatic echogenicity most consistent with hepatic steatosis. Other forms of hepatocellular disease could have similar appearance. 3. Pancreas is not well seen. Dictated by: Sterling Coronel M.D. on 02/23/2021 at 13:27 Approved by: Sterling Coronel M.D. on 02/23/2021 at 13:30
== END ==
PROVIDERS: PCP Family Medicine; Referring Provider Family Medicine; Visit Provider Family Medicine
DX: R10.9 Unspecified abdominal pain (principal); K80.80 Other cholelithiasis without obstruction
CPT/HCPCS: 76700

== ENCOUNTER → 2021-04-10 12:52 | Outpatient (CLI) | payer OTHER, SELFPAY ==
--- NOTE | 2021-04-10 | DI.MG.S_ITS ---
BILATERAL DIGITAL SCREENING MAMMOGRAM 3D/2D WITH CAD: 04/10/2021 CLINICAL: Routine screening. Comparison is made to exam dated: 05/24/2019 [facility]. There are scattered fibroglandular elements in both breasts. Current study was also evaluated with a Computer Aided Detection (CAD) system. No significant masses, calcifications, or other findings are seen in either breast. There has been no significant interval change. IMPRESSION: NEGATIVE There is no mammographic evidence of malignancy. A 1 year screening mammogram is recommended. This exam was interpreted at Station ID: [id number]. NOTE: For mammograms, a report in lay terms will be sent to the patient. Approximately 15% of breast malignancies will not be visualized mammographically. In the management of a palpable breast mass, a negative mammogram must not discourage biopsy of a clinically suspicious lesion. Electronically Signed By: Sterling strauss/ricardo:04/10/2021 13:38:53 letter sent: Normal Exam ACR BI-RADS Category 1: Negative 3341F
== END ==
PROVIDERS: PCP Family Medicine; Referring Provider Family Medicine; Visit Provider Family Medicine
DX: Z12.31 Encounter for screening mammogram for malignant neoplasm of breast (principal)
CPT/HCPCS: 77063; 77067

== ENCOUNTER → 2021-11-13 12:07 | Outpatient (CLI) | payer OTHER, SELFPAY ==
--- NOTE | 2021-11-13 | DI.CT.S_ITS ---
PROCEDURE: CT SINUS SCREEN WO CON INDICATIONS: Chronic sinusitis, unspecified TECHNIQUE: Noncontrast 3.0 mm axial images acquired from the frontal sinuses to the mid-sella, with coronal and sagittal reformats. For radiation dose reduction, the following was used: automated exposure control, adjustment of mA and/or kV according to patient size. COMPARISON: None. FINDINGS: Image quality: Excellent. Maxillary Sinuses: No bony remodeling or destruction. Sinuses are clear. Ethmoid Air Cells: No bony remodeling or destruction. Sinuses are clear. Sphenoid Sinuses: No bony remodeling or destruction. Sinuses are clear. Frontal Sinuses: No bony remodeling or destruction. Sinuses are clear. Ostiomeatal Complexes: Ostiomeatal complexes are patent. No Merlin cells. Miscellaneous: Visualized intra-orbital contents are normal. No matilde bullosa or paradoxical turbinate curvature. No nasal septal deviation. IMPRESSION: Unremarkable CT sinus. No sequelae of chronic sinusitis. Approved by: Tone Velarde M.D. on 11/13/2021 at 15:26
== END ==
PROVIDERS: PCP Family Medicine; Referring Provider Family Medicine; Visit Provider Family Medicine
DX: J32.9 Chronic sinusitis, unspecified (principal)
CPT/HCPCS: 70486

== ENCOUNTER → 2022-04-19 11:17 | Outpatient (CLI) | payer OTHER, SELFPAY ==
--- NOTE | 2022-04-19 | DI.MG.S_ITS ---
BILATERAL DIGITAL SCREENING MAMMOGRAM 3D/2D WITH CAD: 04/19/2022 CLINICAL: Routine screening. Comparison is made to exams dated: 04/10/2021 mammogram and 05/24/2019 mammogram - [facility]. There are scattered areas of fibroglandular density in both breasts (category b / 25%-50% glandular tissue). Current study was also evaluated with a Computer Aided Detection (CAD) system. No significant masses, calcifications, or other findings are seen in either breast. There has been no significant interval change. IMPRESSION: NEGATIVE There is no mammographic evidence of malignancy. A 1 year screening mammogram is recommended. Based on the Tyrer Cuzick model (a risk assessment model) the patient's lifetime risk is 10.3% and her 10 year risk is 1.6%. According to the ACR, ACS, and NCCN guidelines, an annual breast MRI exam along with mammogram is recommended if the patient's lifetime risk is 20% or greater. This exam was interpreted at Station ID: [id number]. NOTE: For mammograms, a report in lay terms will be sent to the patient. Approximately 15% of breast malignancies will not be visualized mammographically. In the management of a palpable breast mass, a negative mammogram must not discourage biopsy of a clinically suspicious lesion. Electronically Signed By: Tani selby/ricardo:04/19/2022 17:04:55 letter sent: Normal Exam ACR BI-RADS Category 1: Negative 3341F
== END ==
PROVIDERS: PCP Family Medicine; Referring Provider Family Medicine; Visit Provider Family Medicine
DX: Z12.31 Encounter for screening mammogram for malignant neoplasm of breast (principal)
CPT/HCPCS: 77063; 77067

== ENCOUNTER → 2023-05-27 11:13 | Outpatient (CLI) | payer OTHER, SELFPAY ==
--- NOTE | 2023-05-27 | DI.MG.S_ITS ---
BILATERAL DIGITAL SCREENING MAMMOGRAM 3D/2D WITH CAD: 05/27/2023 CLINICAL: Routine screening. Comparison is made to exams dated: 04/19/2022 mammogram, 04/10/2021 mammogram, and 05/24/2019 mammogram - [facility]. Both breasts are almost entirely fatty (category a/<25% glandular tissue). Current study was also evaluated with a Computer Aided Detection (CAD) system. No significant masses, calcifications, or other findings are seen in either breast. There has been no significant interval change. IMPRESSION: NEGATIVE There is no mammographic evidence of malignancy. A 1 year screening mammogram is recommended. Based on the Tyrer Cuzick model (a risk assessment model) the patient's lifetime risk is 6.6% and her 10 year risk is 1.1%. According to the ACR, ACS, and NCCN guidelines, an annual breast MRI exam along with mammogram is recommended if the patient's lifetime risk is 20% or greater. This exam was interpreted at Station ID: [id number]. NOTE: For mammograms, a report in lay terms will be sent to the patient. Approximately 15% of breast malignancies will not be visualized mammographically. In the management of a palpable breast mass, a negative mammogram must not discourage biopsy of a clinically suspicious lesion. Electronically Signed By: Darien fu/ricardo:05/27/2023 13:06:54 letter sent: Normal Exam ACR BI-RADS Category 1: Negative 3341F
== END ==
PROVIDERS: PCP Family Medicine; Referring Provider Family Medicine; Visit Provider Family Medicine
DX: Z12.31 Encounter for screening mammogram for malignant neoplasm of breast (principal)
CPT/HCPCS: 77063; 77067

== ENCOUNTER → 2024-06-02 11:23 | Outpatient (CLI) | payer OTHER, SELFPAY ==
--- NOTE | 2024-06-02 11:25 | DI.MG.S_ITS ---
BILATERAL DIGITAL SCREENING MAMMOGRAM 3D/2D WITH CAD: 06/02/2024 CLINICAL: Routine screening. Comparison is made to exams dated: 05/27/2023 mammogram, 04/19/2022 mammogram, and 04/10/2021 mammogram - [facility]. The breasts are almost entirely fatty (category a/<25% glandular tissue). Current study was also evaluated with a Computer Aided Detection (CAD) system. No significant masses, calcifications, or other findings are seen in either breast. There has been no significant interval change. IMPRESSION: NEGATIVE There is no mammographic evidence of malignancy. A 1 year screening mammogram is recommended. Based on the Tyrer Cuzick model (a risk assessment model) the patient's lifetime risk is 6.6% and her 10 year risk is 1.2%. According to the ACR, ACS, and NCCN guidelines, an annual breast MRI exam along with mammogram is recommended if the patient's lifetime risk is 20% or greater. This exam was interpreted at Station ID: [id number]. NOTE: For mammograms, a report in lay terms will be sent to the patient. Approximately 15% of breast malignancies will not be visualized mammographically. In the management of a palpable breast mass, a negative mammogram must not discourage biopsy of a clinically suspicious lesion. Electronically Signed By: Renata ortiz/ricardo:06/02/2024 19:17:52 letter sent: Normal Exam ACR BI-RADS Category 1: Negative
== END ==
PROVIDERS: PCP Family Medicine; Referring Provider Family Medicine; Visit Provider Family Medicine
DX: Z12.31 Encounter for screening mammogram for malignant neoplasm of breast (principal); R92.313 Mammographic fatty tissue density, bilateral breasts
CPT/HCPCS: 77063; 77067

== ENCOUNTER → 2025-06-17 15:06 | Outpatient (CLI) | payer OTHER, SELFPAY ==
--- NOTE | 2025-06-17 15:09 | DI.MG.S_ITS ---
MM screening mammo BI: 06/17/2025. BI-RADS: 1 CLINICAL: 44-year old female for bilateral screening mammogram. Tyrer-Cuzick lifetime risk of 10.3%. No personal or first-degree family history of breast cancer. PRIOR EXAMS 06/02/2024, 05/27/2023, 04/19/2022, 04/10/2021. MAMMOGRAPHY TECHNIQUE: 2D and 3D (tomosynthesis) digital mammographic views obtained, with additional images as needed for full coverage. Current study was also evaluated with a Computer Aided Detection (CAD) system. DENSITY B. There are scattered areas of fibroglandular density. MAMMOGRAPHY FINDINGS Bilateral: No suspicious mass, asymmetry, microcalcification, or other abnormality seen. IMPRESSION: * No evidence of malignancy. RECOMMENDATIONS Bilateral * Annual screening mammography. OVERALL ASSESSMENT CATEGORY BI-RADS-1: Negative. The [employer] recommends annual screening mammography beginning at age 40 for women with average risk of breast cancer. ELECTRONICALLY SIGNED: Cindy Barrera M.D. on 06/20/2025 at 04:13:33 PM PT Interpreting Station ID: [id number]
== END ==
LOC: MAMMO 15:08
PROVIDERS: PCP Family Medicine; Referring Provider Family Medicine; Visit Provider Family Medicine
DX: Z12.31 Encounter for screening mammogram for malignant neoplasm of breast (principal)
CPT/HCPCS: 77063; 77067